=== PATIENT | female | born 1950 | race Caucasian/White ===

== ENCOUNTER → 2019-11-07 | Outpatient (CLI) | payer OTHER | LOC: ULTRA 16:17 | DX: M79.661 Pain in right lower leg (principal) ==

== ENCOUNTER → 2021-01-22 | Outpatient (CLI) | payer OTHER | LOC: MRI 08:05 | PROVIDERS: ATTEND Nuclear Medicine Nuclear Cardiology | DX: S22.060A Wedge compression fracture of T7-T8 vertebra, initial encounter for closed fracture (principal); M54.5 Low back pain; X58.XXXA Exposure to other specified factors, initial encounter; Y92.89 Other specified places as the place of occurrence of the external cause; Y93.89 Activity, other specified; Y99.8 Other external cause status ==

== ENCOUNTER → 2021-01-25 | Outpatient (CLI) | payer OTHER ==
[~2021-01-25] VITALS: Ht 190.5 cm; Wt 77.1 kg
[~2021-01-25] MED LIST: CRESTOR20 MG PO; EZALLOR SPRINKLE5 MG PO; NORCO5 PO; NORVASC 2.5 MG2.5 MG PO; TOPROL XL50 MG PO; XANAX 0.25 MG0.25 MG PO
[2021-01-25 09:21] LABS: HEMATOCRIT 41.8 % (37.0-47.0); MCH 31.2 pg (26.0-34.0); MCHC 33.5 g/dL (28.0-37.0); MCV 93.2 fL (80.0-100.0); RBC 4.48 mil/uL (4.20-5.00); RDW 13.1 % (10.5-14.5); WBC 8.4 thou/uL (4.0-11.0)
[2021-01-25 10:44] VITALS: BP 119/63
== END | disposition home or self-care (01) ==
LOC: CATH 06:25
PROVIDERS: ATTEND Nuclear Medicine Nuclear Cardiology
DX: M54.9 Dorsalgia, unspecified (principal); M80.08XA Age-related osteoporosis with current pathological fracture, vertebra(e), initial encounter for fracture; I10 Essential (primary) hypertension; E78.00 Pure hypercholesterolemia, unspecified; F17.210 Nicotine dependence, cigarettes, uncomplicated; Z98.890 Other specified postprocedural states; Z79.899 Other long term (current) drug therapy; Z82.49 Family history of ischemic heart disease and other diseases of the circulatory system; Z88.8 Allergy status to other drugs, medicaments and biological substances

== ENCOUNTER 2021-03-24 07:40 | Observation (INO) | payer OTHER ==
[2021-03-24] VITALS (8 sets, daily range): BP systolic 122–173; BP diastolic 61–96
[~2021-03-24] VITALS: Ht 160 cm; Wt 77.6 kg
--- NOTE | ~2021-03-24 | EKG ---
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
[~2021-03-24 07:40] MED LIST changes: +ADVIL200 M3 PO; +NORVASC5 MG PO; +SYNTHROID75 MC1 PO
[2021-03-24 08:43] LABS: HEMATOCRIT 41.8 % (37.0-47.0); HEMOGLOBIN 14.3 gm/dL (12.0-15.0)
[2021-03-24 22:32] LABS: ALBUMIN 3.8 g/dL (3.4-5.0); DIRECT BILIRUBIN < 0.1 mg/dL (<0.1-0.2); SGOT 23 U/L (15-37); SGPT 29 U/L (30-65); TOTAL BILIRUBIN 0.4 mg/dL (0.2-1.0); TOTAL PROTEIN 7.1 g/dL (6.4-8.2)
[2021-03-25] VITALS (15 sets, daily range): BP systolic 124–151; BP diastolic 34–82
--- NOTE | 2021-03-25 11:42 | O ---
[facility] [place] [address] OPERATIVE REPORT Name: STEPHEN PICKARD Room #: 458-P [facility]#: [id number] Admission: 03/24/21 Attend Phys: Agnel Rapp MD Discharge: Date of : 50 Report #: [id number] THIS REPORT FOR: cc: Garrick Mcneil MD, Christopher B. MD Chu, Peter Y. MD ~ DOC #: [id number] cc: MD Angel Amin MD DATE OF SERVICE: 03/24/2021 PREOPERATIVE DIAGNOSIS: Cholecystitis with cholelithiasis. POSTOPERATIVE DIAGNOSES: 1. Cholecystitis with cholelithiasis. 2. Common bile duct stone with obstruction of contrast to the duodenum. Dilated common bile duct. Dilated cystic duct. PROCEDURE PERFORMED: Laparoscopic cholecystectomy with cholangiogram. SURGEON: Angel Rapp M.D. TYPE OF ANESTHESIA: General anesthesia. COMPLICATIONS: None. ESTIMATED BLOOD LOSS: 5 mL FINDINGS: The patient's cystic duct was enlarged. There are filling defects in the common duct, likely stone plus sludge material. Obstruction of contrast flow to the duodenum and the patient received glucagon without changing the appearance of the duct. DESCRIPTION OF PROCEDURE: With the patient under general anesthesia, abdomen was prepped and draped in a sterile fashion. IV antibiotic was given. Timeout was performed. Marcaine 0.25% was used to anesthetize the skin below the umbilicus. Curvilinear incision was made infraumbilically. Fascia was identified, grasped with hemostat. Fascia was then opened under visualization. 0 Vicryl sutures were placed on the fascial edges for retraction. With the abdominal wall lifted anteriorly, Veress needle was then placed through the posterior fascia and peritoneum without difficulty. Abdominal cavity was insufflated with CO2. After creating pneumoperitoneum pressure of 15, 11 mm trocar was placed under visualization into the pneumoperitoneum. No harm to the underlying tissue. Two 5 mm trocars placed in right upper quadrant and a 5 mm trocar placed in right epigastrium. Laparoscopic evaluation of the abdomen did [facility] [address] [place] [address] OPERATIVE REPORT Name: STEPHEN PICKARD Room #: 458-P [employer] [facility] M.R.#: [id number] Admission: 03/24/21 Attend Phys: Angel Rapp MD Discharge: Date of : 50 Report #: [id number] not show any abnormality that was able to be seen. The gallbladder was lifted over the liver. There is adhesion to the liver laterally where the gallbladder was lying against. Adhesions likely reacting to the gallbladder disease. The gallbladder is moderately distended. No acute inflammation of the gallbladder. The peritoneum over the cystic duct was dissected free. The cystic duct was scarred down. The gallbladder junction to the cystic duct was also floated. This was able to be straightened out. The cystic artery was found. This is pretty close to the cystic duct. The artery was isolated, clipped x2 proximally and one distally and then divided. This allowed better exposure of the cystic duct. The cystic duct is noted to be dilated. appeared to have a stone in the area of the cystic duct gallbladder junction. The stone was able to be moved back into the gallbladder. Clip was placed in the junction of the cystic duct to the gallbladder. Opening was made in the cystic duct. Cholangiogram catheter was placed. Catheter was held with Hemoclip. Injection was then performed for the contrast. The cystic duct was dilated in size on the contrast study. Common duct is also dilated. Initially, I saw some sludgy material flowed in the duct and then the material seemed to be gathered at the distal duct. Very little flow into the duodenum, but there was some. The patient was given glucagon and repeat injection was performed. I flushed the common duct with saline. I can feel that there was still resistant to the injection after a few mL and it the becomes harder to inject. Dye was then placed after the patient received glucagon. Common duct filled out again well and dilated and there was still very little flow through the distal duct into the duodenum. There was essentially no change in the appearance of the cholangiogram. The intraoperative cholangiogram was then terminated. The cholangiogram catheter was removed. A clip was placed across the cystic duct. Cystic duct was divided. Due to the enlarged cystic duct, an 0 PDS Endoloop was placed around the cystic duct, just below the previous applied clip. There was a posterior artery. This was clipped x2 and then the distal end of it was divided with cautery. Gallbladder was freed from the liver bed without difficulty. Gallbladder was removed through the infraumbilical port. Gallbladder was opened off the field. There were numerous small stones, some measure mm and there are some stones that do measure up to about 3-4 mm. There are approximately 20 small stones in the gallbladder. The liver bed where the gallbladder was detached was hemostatic. No bleeding was identified. The clips were intact. Irrigation was performed. Irrigation was then aspirated out. CO2 was evacuated. Trocars then removed. The fascia defect infraumbilically was closed with [id number]-vvwhf 0 Vicryl x2. Skin was irrigated. Skin was closed with 5-0 PDS. Steri-Strips were applied. Band-Aids used for dressing. The patient tolerated the procedure well. The intraoperative cholangiogram finding was discussed with the and we will go ahead and we will consult Dr. Doran, who was in the recovery room for a probable ERCP. Angel Rapp MD [facility] [address] [place] [address] OPERATIVE REPORT Name: STEPHEN PICKARD Valentina Room #: 458-P [employer] M.R.#: [id number] Admission: 03/24/21 Attend Phys: Angel Rapp MD Discharge: Date of : 50 Report #: [id number] <ELECTRONICALLY SIGNED> By: Angel Rapp MD 03/25/21 1142 1251 1330 Angel Rapp MD /nt
[2021-03-25 12:06] LABS: HEMATOCRIT 39.1 % (37.0-47.0); HEMOGLOBIN 13.2 gm/dL (12.0-15.0); MCH 31.3 pg (26.0-34.0); MCHC 33.7 g/dL (28.0-37.0); RBC 4.2 mil/uL (4.20-5.00); RDW 13.1 % (10.5-14.5); WBC 15.9 thou/uL (4.0-11.0)
[2021-03-25 12:20] LABS: CALCIUM 9.3 mg/dL (8.5-10.1); CREATININE 0.8 mg/dL (0.6-1.0); POTASSIUM 4.1 mmol/L (3.5-5.1)
[2021-03-25 12:26] LABS: ALBUMIN 3.1 g/dL (3.4-5.0); TOTAL BILIRUBIN 0.5 mg/dL (0.2-1.0); TOTAL PROTEIN 6.9 g/dL (6.4-8.2)
[2021-03-25] MEDS ORDERED: HYDROCODON-ACE1 EAC7 PO (15:25)
[2021-03-26 03:45] VITALS: BP 137/68
[2021-03-26 05:23] LABS: HEMATOCRIT 38.9 % (37.0-47.0); HEMOGLOBIN 12.9 gm/dL (12.0-15.0); MCH 30.9 pg (26.0-34.0); MCHC 33.1 g/dL (28.0-37.0); MCV 93.3 fL (80.0-100.0); RBC 4.17 mil/uL (4.20-5.00); RDW 13.1 % (10.5-14.5); WBC 14.7 thou/uL (4.0-11.0)
[2021-03-26 05:44] LABS: CALCIUM 9.2 mg/dL (8.5-10.1); CREATININE 0.8 mg/dL (0.6-1.0); MAGNESIUM 2.1 mg/dL (1.8-2.4); POTASSIUM 4.1 mmol/L (3.5-5.1)
[2021-03-26 07:00] VITALS: BP 138/61
--- NOTE | 2021-03-26 08:20 | EKG ---
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
[2021-03-26 09:55] LABS: ALBUMIN 3.1 g/dL (3.4-5.0); DIRECT BILIRUBIN 0.1 mg/dL (<0.1-0.2); TOTAL BILIRUBIN 0.4 mg/dL (0.2-1.0); TOTAL PROTEIN 6.9 g/dL (6.4-8.2)
[2021-03-26 11:47] VITALS: BP 143/63
[2021-03-26] MEDS ORDERED: LEVOFLOXACIN500 MG PO (12:56)
--- NOTE | 2021-03-26 13:55 | P ---
[facility] [place] [address] PROCEDURE REPORT Name: STEPHEN PICKARD Room #: 458-P [facility]#: [id number] Admission: 03/24/21 Attend Phys: Angel Rapp MD Discharge: Date of : 50 Report #: [id number] THIS REPORT FOR: cc: Garrick Mcneil MD,Kuldeep Thorne MD, MD ~ DOC #: [id number] cc: Angel Rapp MD, Garrick Doran MD DATE OF SERVICE: 03/25/2021 PROCEDURE PERFORMED: Attempted endoscopic retrograde cholangiopancreatography. HISTORY OF PRESENT ILLNESS: The patient is a 70-year-old female with recent history of right upper quadrant abdominal pain. She underwent a laparoscopic cholecystectomy yesterday by Dr. Rapp. Multiple small stones were noted in the gallbladder. Intraoperative cholangiogram showing additional filling defect in the distal common bile duct, likely a stone. Because of this plan is for ERCP today. Her white count today is 15.9, hemoglobin 13.2, total bilirubin 0.5, AST 95, ALT 122, alkaline phosphatase 77. She has been on Ancef since yesterday. DESCRIPTION OF PROCEDURE: The risks and benefits of the procedure were explained to the patient, those risks including but not limited to bleeding, perforation and the risk of sedation as well as the potential risk for post-ERCP pancreatitis. She understood these risks and gave informed consent. The procedure was performed in the operating room under general anesthesia. Again, the patient is already on IV Ancef at this time. A 50 mg indomethacin rectal suppository was given prior to the procedure. Next, using a standard Olympus ERCP side viewing scope, the scope was placed in the patient's mouth and advanced under direct vision through the esophagus, stomach and into the second portion of the duodenum. A few clean white based ulcers were noted in the second portion of the duodenum, there were two diverticula noted in the second portion. I spent approximately an hour and 50 minutes, attempting to find the major papilla despite multiple efforts, I was never able to visualize the papilla in either one of the diverticulum. There was a time when the inferior diverticulum did have bile coming out. Therefore, I spent a large amount of time in this area, but again not able to see the actual papilla. I tried to advance sphincterotome catheter several times somewhat blindly with gentle pressure, but it would not advance after this period of time, I felt like this was continued to be unsuccessful. Therefore, the scope was then withdrawn and the procedure terminated. The patient tolerated the procedure well. IMPRESSION: 1. Unsuccessful ERCP due to unable to visualize the papilla and diverticulum. 2. Few small clean white based ulcers in the duodenum. [facility] [address] [place] [address] PROCEDURE REPORT Name: STEPHEN PICKARD Room #: 458-P [facility] Aidee Coronado#: [id number] Admission: 03/24/21 Attend Phys: Angel Rapp MD Discharge: Date of : 50 Report #: [id number] RECOMMENDATIONS: 1. We will start daily PPI therapy. 2. We will discuss options with the patient including considering Dr. Earl to reattempt with possible SpyGlass or with EUS in the near future. Thank you for allowing me to participate in her care. Kuldeep Doran MD CCM/ROBERT <ELECTRONICALLY SIGNED> By: Kuldeep Doran MD 03/26/21 1355 1423 Kuldeep Doran MD /nt
--- NOTE | 2021-03-26 16:06 | PATH ---
[facility] [address] [place] [address] PATHOLOGY RPT PROCEDURE Name: KACEY ESPAÑA Valentina Room #: 458-P [facility] Aidee PreciadoRRadha#: [id number] Admission: 03/24/21 Date of : 50 Discharge: 03/26/21 Report #: [id number] Path Case #: [id number] [facility] Accession Number: [id number] . 01 Material submitted: . gallbladder - GALLBLADDER . 01 Clinical history: . LAPAROSCOPIC CHOLECYSTECTOMY WITH G GALLBLADDER DISEASE, GALLSTONES . 02 Diagnosis: Gallbladder, cholecystectomy: - Moderate chronic cholecystitis. - Cholelithiasis. (IUV:service liaison representative; 03/26/2021) MBR 03/26/2021 1418 Local . 02 Electronically signed: . Beata Elmore MD, Pathologist NPI- [id number] . 01 Gross description: . The specimen is received in formalin, labeled "Kacey España", "gallbladder". Received is a previously opened gallbladder measuring 8.2 x 2.5 x 2.2 cm. The external surface is wrinkled, shiny and pale vkuq-xyzf-fjy. The gallbladder is opened to show a pale crooks-pale green, spongy, bile stained mucosa with no polypoid adhesions or solid mass is identified. The gallbladder wall measures 0.1-0.2 cm in thickness. Calculi are identified within the container ranging in size from 0.2 cm to 0.4 cm. Predator Control Trapper sections are submitted in cassette A1.(SNA; 03/25/2021) BERRY/SADAF 03/25/2021 0843 Local . 02 Pathologist provided ICD-10: K80.10 . 02 CPT . 576720 Specimen Comment: A courtesy copy of this report has been sent to [phone] Specimen Comment: [id number] Specimen Comment: Report sent to / DR BHAKTA Performed at: [address] [facility] [id number] MD Victorino Hester MD Phone: [phone] [address] [address] PATHOLOGY RPT PROCEDURE Name: KACEY ESPAÑA Room #: 458-P [facility] Aidee Coronado#: [id number] Admission: 03/24/21 Date of : 50 Discharge: 03/26/21 Report #: [id number] Path Case #: [id number] Performed at: 02 [facility] [address] [facility], [place], [place] [id number] MD Beata Elmore MD Phone: [phone]
== END 2021-03-26 14:13 | disposition home or self-care (01) ==
LOC: OR 07:40 → 4W 16:22 → OR 19:53 → 4W 19:54
PROVIDERS: Internal Medicine; Nurse Practitioner; ADMIT Surgery; ATTEND Surgery
DX: K80.60 Calculus of gallbladder and bile duct with cholecystitis, unspecified, without obstruction (principal); Z20.822 Contact with and (suspected) exposure to COVID-19; I10 Essential (primary) hypertension; E78.5 Hyperlipidemia, unspecified; E03.9 Hypothyroidism, unspecified; E78.00 Pure hypercholesterolemia, unspecified; F41.9 Anxiety disorder, unspecified; J96.01 Acute respiratory failure with hypoxia; Z79.899 Other long term (current) drug therapy
CPT/HCPCS: 50010; 50101; 50411; 50555; 50558; 51297; 51489; 52265; 53307; 53310; 55245; 56462; 56525; 56526; 58574; 62110; 62900; 70005